=== PATIENT | female | born 1985 | race Caucasian/White ===

== ENCOUNTER 2017-02-12 10:52 | Emergency (ER) | payer SELFPAY ==
[~2017-02-12] VITALS: Ht 154.9 cm; Wt 59.9 kg
[2017-02-12] MEDS ORDERED: INSU100C5 SQ-INSULIN (11:22)
[2017-02-12] MEDS ORDERED: CARV12.52 PO (11:22)
[2017-02-12] MEDS ORDERED: ENAL5TAB PO (11:22)
[2017-02-12] MEDS ORDERED: INSU100V8 SQ (11:22)
[2017-02-12] MEDS ORDERED: LISI5TAB7 PO (11:22)
[2017-02-12] MEDS ORDERED: SEVE800T8 PO (11:22)
[2017-02-12 12:18] LABS: BLOOD UREA NITROGEN 20 mg/dL (7-18)
[2017-02-12 12:24] LABS: ASPARTATE AMINO TRANSFERASE 268 U/L (15-37)
[2017-02-12 14:05] VITALS: BP 147/69
== END 2017-02-12 14:07 | disposition home or self-care (01) ==
LOC: EDBD 10:52 → ED 14:01
DX: E10.22 Type 1 diabetes mellitus with diabetic chronic kidney disease (principal); N18.6 End stage renal disease; Z99.2 Dependence on renal dialysis; R94.5 Abnormal results of liver function studies
CPT/HCPCS: 36415; 80053; 81001; 82010; 82800; 84703; 85025; 87086; 99284